=== PATIENT | male | born 1985 | race African-American/Black ===

== ENCOUNTER 2017-04-19 23:36 | Emergency (ER) | payer OTHER ==
[~2017-04-19] VITALS: Ht 182.9 cm; Wt 90.1 kg
[2017-04-19] MEDS ORDERED: LORAZEPAM 2 MG/ML 1 ML VIAL IM STA (23:57)
[2017-04-19] MEDS ORDERED: HALOPERIDOL LACTATE 5 MG/ML 1 ML VIAL IM STA (23:57)
[2017-04-19] MEDS ORDERED: LORAZEPAM 2 MG/ML 1 ML VIAL ONE (23:59)
[2017-04-19] MEDS ORDERED: HALOPERIDOL LACTATE 5 MG/ML 1 ML VIAL ONE (23:59)
[2017-04-20 00:26] VITALS: TEMP 36.8
[2017-04-20 00:40] LABS: MEAN CORPUSCULAR HGB CONC 33.5 g/dl (32-36)
[2017-04-20 00:56] LABS: ALT/SGPT 48 U/L (12-78); AST/SGOT 29 U/L (15-37); BLOOD UREA NITROGEN 7 mg/dl (7-18); BUN/CREATININE RATIO 6.2 (10-20); CALCIUM 8.3 mg/dl (8.5-10.1); CARBON DIOXIDE 27 mmol/L (21-32); CHLORIDE 111 mmol/L (98-107); GLUCOSE 105 mg/dl (70-99); POTASSIUM 3.9 mmol/L (3.5-5.1); SODIUM 145 mmol/L (136-145)
[2017-04-20 01:00] LABS: URINE APPEARANCE CLOUDY (CLEAR); URINE BILIRUBIN NEG (NEG); URINE COLOR YELLOW; URINE EPITHELIAL CELL AUTO >30 /lpf (0-5); URINE NITRITE NEG (NEG); UROBILINOGEN NEG (NEG); ZZUR CULT IF INDIC CLEAN CATCH YES
[2017-04-20 01:04] LABS: MANUAL MICROSCOPIC REQUIRED? NO; REVIEW REQ? NO
[2017-04-20 01:07] LABS: ALKALINE PHOSPHATASE 71 U/L (45-117); THYROID STIMULATING HORMONE 0.983 uIu/ml (0.300-4.500)
[2017-04-20 01:11] LABS: HEMATOCRIT 41.8 % (42-52); MEAN CELL VOLUME 107.5 fL (80-100); RED BLOOD COUNT 3.89 M/uL (4.7-6.1)
[2017-04-20 01:15] LABS: MEAN PLATELET VOLUME 13.8 fL (7.4-10.4); PLATELET COUNT 175 K/uL (130-400)
[2017-04-20 01:24] LABS: BENZODIAZEPINE, URINE NEG (NEG); COCAINE,URINE NEG (NEG); PHENCYCLIDINE, URINE NEG (NEG)
[2017-04-20 01:24] LABS: BASO % 0.2 %; BASO ABS # 0.01 K/uL (0-0.2); COMPLETE YES; EOS % 2.4 %; IG% 0.2 %; LARGE PLATELETS 1+; LYMPH % 47.8 %; LYMPH ABS # 3.01 K/uL (1.2-3.4); MONO % 9.8 %; NEUT % 39.6 %; OVALOCYTES 1+; PLT ESTIMATE NORMAL; VACUOLIZATION 1+
[2017-04-20 01:32] LABS: ACETAMINOPHEN < 2 ug/ml (10-30)
[2017-04-20 04:26] LABS: URINE APPEARANCE CLEAR (CLEAR); URINE BILIRUBIN NEG (NEG); URINE COLOR DK YELLOW; URINE NITRITE NEG (NEG); URINE PH 5.5 (4.5-7.5); URINE SPECIFIC GRAVITY 1.024 (1.000-1.030); UROBILINOGEN NEG (NEG); ZZUR CULT IF INDIC CLEAN CATCH NO
[2017-04-20 04:33] LABS: MANUAL MICROSCOPIC REQUIRED? NO; REVIEW REQ? NO
--- NOTE | 2017-04-20 05:49 | EMERGENCY ROOM VISIT NOTE ---
History Report prepared by Brigida: Jez Schreiber Under the Supervision of: Dr. Tiesha Mena M.D. First contact with patient: 23:43 Chief Complaint: MENTAL HEALTH EVALUATION Stated Complaint: MENTAL HEALTH History of Present Illness The patient is a 31 year old male who presents to the Emergency Room by police for persistent suicidal ideation. Per police, the patient called 911 earlier today and made statements about wanting to hurt someone. They report that the patient called 911 shortly after this again and said "I called this number because it helped stop me from killing someone or killing myself". They state that the patient's called 911 15 minutes later concerned for her safety. Police states that the patient's explained on scene that the patient came at her with a forestry fire aid knife and asked her to use it to kill him. She explained that the patient has been acting suicidal recently, and has been watching a lot of conspiracy videos online that promote suicide. She states that the patient was smashing his wrists into the wall as well in an attempt to hurt himself earlier today. Police believes that the patient was hoping to by police gunfire with the multiple called to 911 today. They note that the patient has been drinking alcohol tonight. HPI limited secondary to poor cooperation. Source of History: police History Limited By: poor cooperation Onset: Today Quality: other (suicidal ideation) Timing: other (persistent) Review of Systems ROS limited secondary to poor cooperation. Past Medical & Surgical Medical Problems: (1) Chest pain Family History Unobtainable secondary to poor cooperation. Social History Smoking Status: Current Every Day Smoker Drug Use: none Marital Status: Housing Status: lives with family Occupation Status: employed Current/Historical Medications No Active Prescriptions or Reported Meds Allergies Coded Allergies: No Known Allergies (Unverified , 04/20/17) Physical Exam Vital Signs Date Time Temp Pulse Resp B/P (MAP) Pulse Ox O2 Delivery O2 Flow Rate FiO2 04/20/17 11:13 95 18 139/69 97 04/20/17 08:30 70 18 145/73 97 Room Air 04/20/17 04:06 76 16 94/48 98 Room Air 04/20/17 02:26 86 14 96/58 96 Room Air 04/20/17 00:26 36.8 112 18 124/100 98 Room Air 04/19/17 23:37 26 Room Air Physical Exam Vital signs reviewed. General: Agitated. Swearing. Yelling obscenities. HEENT: No scleral icterus, PERRLA, neck supple. Atraumatic. Cardiovascular: Regular rate and rhythm, no extra sounds. Pulmonary: Clear to auscultation bilaterally, normal work of breathing. Abdomen: Soft, nontender, nondistended, positive bowel sounds. Musculoskeletal: Atraumatic, no peripheral edema. Neurologic: Patient awake alert and oriented x 3 Skin: Warm, dry, no rash Psych: Refuses to answer questions. States "go fuck yourself." Medical Decision & Procedures Laboratory Results 04/20/17 00:24 Red Blood Count 3.89, Mean Corpuscular Volume 107.5, Mean Corpuscular Hemoglobin 36.0, Mean Corpuscular Hemoglobin Concent 33.5, Mean Platelet Volume 13.8, Neutrophils (%) (Auto) 39.6, Lymphocytes (%) (Auto) 47.8, Monocytes (%) ( Auto) 9.8, Eosinophils (%) (Auto) 2.4, Basophils (%) (Auto) 0.2, Neutrophils # ( Auto) 2.50, Lymphocytes # (Auto) 3.01, Monocytes # (Auto) 0.62, Eosinophils # ( Auto) 0.15, Basophils # (Auto) 0.01 04/20/17 00:24 Test 04/20/17 00:24 04/20/17 00:34 04/20/17 04:10 White Blood Count 6.30 K/uL (4.8-10.8) Red Blood Count 3.89 M/uL (4.7-6.1) Hemoglobin 14.0 g/dL (14.0-18.0) Hematocrit 41.8 % (42-52) Mean Corpuscular Volume 107.5 fL (80-100) Mean Corpuscular Hemoglobin 36.0 pg (25-34) Mean Corpuscular Hemoglobin Concent 33.5 g/dl (32-36) Platelet Count 175 K/uL (130-400) Mean Platelet Volume 13.8 fL (7.4-10.4) Neutrophils (%) (Auto) 39.6 % Lymphocytes (%) (Auto) 47.8 % Monocytes (%) (Auto) 9.8 % Eosinophils (%) (Auto) 2.4 % Basophils (%) (Auto) 0.2 % Neutrophils # (Auto) 2.50 K/uL (1.4-6.5) Lymphocytes # (Auto) 3.01 K/uL (1.2-3.4) Monocytes # (Auto) 0.62 K/uL (0.11-0.59) Eosinophils # (Auto) 0.15 K/uL (0-0.5) Basophils # (Auto) 0.01 K/uL (0-0.2) RDW Standard Deviation 61.5 fL (36.4-46.3) RDW Coefficient of Variation 15.6 % (11.5-14.5) Immature Granulocyte % (Auto) 0.2 % Immature Granulocyte # (Auto) 0.01 K/uL (0.00-0.02) Toxic Vacuolation 1+ Platelet Estimate NORMAL Large Platelets 1+ Macrocytosis PRESENT Ovalocytes 1+ Anion Gap 7.0 mmol/L (3-11) Estimated GFR () 91.5 Estimated GFR (Non- 79.0 BUN/Creatinine Ratio 6.2 (10-20) Calcium Level 8.3 mg/dl (8.5-10.1) Total Bilirubin 0.3 mg/dl (0.2-1) Direct Bilirubin < 0.1 mg/dl (0-0.2) Aspartate Amino Transf (AST/SGOT) 29 U/L (15-37) Alanine Aminotransferase (ALT/SGPT) 48 U/L (12-78) Alkaline Phosphatase 71 U/L (45-117) Total Protein 8.0 gm/dl (6.4-8.2) Albumin 4.1 gm/dl (3.4-5.0) Thyroid Stimulating Hormone (TSH) 0.983 uIu/ml (0.300-4.500) Salicylates Level < 1.7 mg/dl (2.8-20) Acetaminophen Level < 2 ug/ml (10-30) Ethyl Alcohol mg/dL 213.0 mg/dl (0-3) Urine Opiates Screen NEG (NEG) Urine Methadone, Qualitative NEG (NEG) Urine Barbiturates NEG (NEG) Urine Phencyclidine (PCP) Level NEG (NEG) Ur Amphetamine/Methamphetamine NEG (NEG) MDMA (Ecstasy) Screen NEG (NEG) Urine Benzodiazepines Screen NEG (NEG) Urine Cocaine Metabolite NEG (NEG) Urine Marijuana (THC) NEG (NEG) Urine Color DK YELLOW Urine Appearance CLEAR (CLEAR) Urine pH 5.5 (4.5-7.5) Urine Specific [place] 1.024 (1.000-1.030) Urine Protein TRACE (NEG) Urine Glucose (UA) NEG (NEG) Urine Ketones TRACE (NEG) Urine Occult Blood 2+ (NEG) Urine Nitrite NEG (NEG) Urine Bilirubin NEG (NEG) Urine Urobilinogen NEG (NEG) Urine Leukocyte Esterase TRACE (NEG) Urine WBC (Auto) 5-10 /hpf (0-5) Urine RBC (Auto) 0-4 /hpf (0-4) Urine Hyaline Casts (Auto) 1-5 /lpf (0-5) Urine Epithelial Cells (Auto) 10-20 /lpf (0-5) Urine Bacteria (Auto) NEG (NEG) Laboratory results per my review. Medications Administered Medications (Trade) Dose Ordered Sig/Devorah Route Start Time Stop Time Status Last Admin Dose Admin Haloperidol Lactate (Haldol Inj) 5 mg NOW STAT IM 04/19/17 23:57 04/19/17 23:59 DC 04/20/17 00:08 5 MG Lorazepam (Ativan Inj) 2 mg NOW STAT IM 04/19/17 23:57 04/19/17 23:59 DC 04/20/17 00:08 2 MG ED Course 2344: Past medical records reviewed. The patient was evaluated in room A8. A complete history and physical examination was performed. 2357: Ordered Ativan 2 mg IM, Haldol Inj 5 mg IM. 0148: I discussed the patient's case with the family independence case manager. 0508: I spoke with the hobbies and crafts sales representative from [address] [place] [address]. She feels that the patient needs inpatient treatment and has discussed voluntary and involuntary commitment with the patient. 0535: I again spoke with the hobbies and crafts sales representative from [address] [place] [address]. The patient will not agree to pursue treatment voluntarily. A 302 petitioning statement will be drafted. 0730: The patient was signed out to Dr. Alvarenga at the change of shift pending bed placement. Medical Decision Differential diagnosis: Etiologies such as mood disorder, infection, hypoglycemia, electrolyte abnormalities, cardiac sources, intracerebral event, toxicologic, neurologic, as well as others were entertained. This patient was evaluated and appeared to be in no significant distress. Laboratory work reveals patient is intoxicated. He did require 5 mg of Haldol and 2 mg of Ativan IM. Patient was observed in the ER for multiple hours. Urinalysis was repeated as the first specimen was grossly contaminated. Second UA is also contaminated however improved. This will be sent for culture. No treatment is indicated at this time. The patient is involuntary for treatment however I do not feel he is safe to return to his home environment. He has made multiple suicidal statements/gestures today and has proven that he is impulsive. A 302 has been completed and a search is underway. Case was signed out to Dr. Alvarenga at the change of shift. Please see his notes for final disposition. Medication Reconcilliation Current Medication List: was personally reviewed by me Blood Pressure Screening Patient's blood pressure: Normal blood pressure Blood pressure disposition: Did not require urgent referral Impression Primary Impression: Suicidal ideation Additional Impression: Suicide gesture Scribe Attestation The scribe's documentation has been prepared under my direction and personally reviewed by me in its entirety. I confirm that the note above accurately reflects all work, treatment, procedures, and medical decision making performed by me. Departure Information Dispostion Still a Patient (Signed out to Dr. Alvarenga) Prescriptions No Active Prescriptions or Reported Meds Referrals No Doctor, Assigned (PCP) Patient Instructions My [facility] Problem Qualifiers
[2017-04-20 06:27] VITALS: Ht 182.9 cm; Wt 90.1 kg
--- NOTE | 2017-04-20 10:33 | EMERGENCY ROOM VISIT NOTE ---
ED Visit Note Patient was admitted to the [facility].
[2017-04-20 11:13] VITALS: BP 139/69; PULSE 95; O2SAT 97
[2017-04-26 14:34] LABS: SYNTHETIC CANNABINOIDS QL URIN NEGATIVE (Negative)
== END 2017-04-20 11:13 ==
LOC: EDUNIT# 23:36 → C.EDA 23:38
DX: R45.851 Suicidal ideations (principal); F17.200 Nicotine dependence, unspecified, uncomplicated